=== PATIENT | female | born 1995 | race Caucasian/White ===

== ENCOUNTER 2021-02-10 09:37 | Emergency (ER) | payer OTHER ==
[2021-02-10 10:17] LABS: Bilirubin Neg (Negative); Blood, Urine Negative (Negative); Clarity Clear (Clear); Glucose, Urine (Dipstick) Normal (Negative); Ketone, Urine 15 mg/dL (Negative); Leukocyte 100 (Negative); Nitrite Negative (Negative); Protein, Urine (Dipstick) 15 mg/dl (Neg-Trace); Specific Gravity, Urine 1.025 (1.002-1.036); Urobilinogen Normal mg/dL (Less than 2)
[2021-02-10 10:20] LABS: Pregnancy Test - Urine (BHCG) Negative (Negative); Pregu Control Background? CLEAR/WHITE (CLR/WHITE); Pregu Control Bar Appear? YES (CONTROL BAR); Specific Gravity 1.025 (1.002-1.036)
[2021-02-10 10:26] LABS: #Eosinphils 0.1 10x3/uL (0.0-0.5); #Monocytes 0.5 10x3/uL (0.0-1.1); #Neutrophils 9.3 10x3/uL (1.5-8.4); %Basophils 0.3 % (0.0-2.0); %Eosinophils 1.1 % (0.0-6.0); %Lymphocytes 4.7 % (18.0-47.0); %Neutrophils 88.7 % (40.0-75.0); Hemoglobin 13.6 g/dL (12.0-15.5); Mean Corpuscular HGB CONC 32.5 g/dL (32.0-36.0); Mean Corpuscular Hemoglobin 29.4 pg (27.0-33.0); Mean Corpuscular Volume 90.3 fl (81.6-98.3); Mean Platelet Volume 10.3 fl (7.4-10.4); Platelet Count 197 10x3/uL (150-450); RBC Distribution Width 11.8 % (11.5-14.5); Red Blood Cell (RBC) Count 4.63 10x6/uL (3.90-5.03); White Blood Cell (WBC) Count 10.5 10x3/uL (3.5-10.5)
[2021-02-10 10:35] LABS: ALT (SGPT) 16 U/L (8-55); AST (SGOT) 15 U/L (5-34); Albumin 4.4 g/dL (3.5-5.0); Alkaline Phosphatase 38 U/L (40-110); Anion Gap 13 mmol/L (10-20); BUN (Urea Nitrogen) 14 mg/dL (7.0-18.7); Bilirubin, Total 0.5 mg/dL (0.2-1.2); Calc. Creatinine Clearance 0 mL/min (70-130); Calcium 9.3 mg/dL (7.8-10.44); Carbon Dioxide 24 mmol/L (22-29); Chloride 105 mmol/L (98-107); Globulin 3.1 g/dL (2.4-3.5); Glucose 103 mg/dL (70-105); Lipase 19 U/L (8-78); Potassium 3.7 mmol/L (3.5-5.1); Protein, Total 7.5 g/dL (6.0-8.3); Sodium 138 mmol/L (136-145)
[2021-02-10 10:39] LABS: Bacteria/HPF 3+ HPF (None Seen); RBC/HPF 0-3 HPF (0-3)
[2021-02-10] MEDS ORDERED: Ketorolac Tromethamine 30 MG/ML VIAL ONE (13:19)
== END 2021-02-10 13:48 | disposition home or self-care (01) ==
LOC: CSHERS 09:37
DX: R11.2 Nausea with vomiting, unspecified (principal); R19.7 Diarrhea, unspecified
CPT/HCPCS: 80053; 81003; 81015; 81025; 83690; 85025; 96374; J1885

== ENCOUNTER → 2021-11-13 | Day surgery (SDC) | payer OTHER ==
[2021-11-13 12:35] LABS: SARS-CoV-2 NAA Rapid Test DETECTED (NotDetected)
== END ==
LOC: CSHER/OP 11:38
PROVIDERS: ATTEND Pathology Anatomic Pathology & Clinical Pathology
DX: U07.1 COVID-19 (principal)
CPT/HCPCS: U0002

== ENCOUNTER 2022-01-02 08:01 | Inpatient (IN) | payer BC, OTHER ==
[2022-01-02] MEDS ORDERED: Morphine 4 MG/ML VIAL ONE (08:45)
[2022-01-02] MEDS ORDERED: cefTRIAXone\\ROCEPHIN 2 GM VIAL ONE (08:45)
[2022-01-02] MEDS ORDERED: Ketorolac Tromethamine 30 MG/ML VIAL ONE (08:45)
[2022-01-02] MEDS ORDERED: Ondansetron PF 4 MG/2 ML Vial ONE (08:45)
[2022-01-02 08:56] LABS: #Monocytes 0.6 10x3/uL (0.0-1.1); #Neutrophils 6.9 10x3/uL (1.5-8.4); %Basophils 0.5 % (0.0-2.0); %Eosinophils 0.1 % (0.0-6.0); %Lymphocytes 10.5 % (18.0-47.0); %Monocytes 7.5 % (0.0-10.0); Hemoglobin 12.6 g/dL (12.0-15.5); Mean Corpuscular HGB CONC 32.8 g/dL (32.0-36.0); Mean Corpuscular Hemoglobin 28.9 pg (27.0-33.0); Mean Corpuscular Volume 88.1 fl (81.6-98.3); Mean Platelet Volume 10.7 fl (7.4-10.4); Platelet Count 185 10x3/uL (150-450); Red Blood Cell (RBC) Count 4.36 10x6/uL (3.90-5.03); White Blood Cell (WBC) Count 8.6 10x3/uL (3.5-10.5)
[2022-01-02 09:01] LABS: INR-International Normal Ratio 0.9; PTT 28.8 sec (22.0-33.0); Prothrombin Time 10.4 sec (9.5-12.1)
[2022-01-02 09:05] LABS: ALT (SGPT) 18 U/L (8-55); AST (SGOT) 17 U/L (5-34); Albumin 4.1 g/dL (3.5-5.0); Alkaline Phosphatase 49 U/L (40-110); Anion Gap 14 mmol/L (10-20); BUN (Urea Nitrogen) 7 mg/dL (7.0-18.7); Bilirubin, Total 0.5 mg/dL (0.2-1.2); CRP (Inflammatory) 12.79 mg/dL (= or < 0.5); Calc. Creatinine Clearance 0 mL/min (70-130); Carbon Dioxide 23 mmol/L (22-29); Chloride 99 mmol/L (98-107); Globulin 3.3 g/dL (2.4-3.5); Glucose 106 mg/dL (70-105); Potassium 3.6 mmol/L (3.5-5.1); Protein, Total 7.4 g/dL (6.0-8.3); Sodium 132 mmol/L (136-145)
[2022-01-02 09:15] LABS: Lipase 22 U/L (8-78); Magnesium 1.6 mg/dL (1.6-2.6)
[2022-01-02 09:22] LABS: Thyroid Stimulating Hormone 0.6654 uIU/mL (0.35-4.94)
[2022-01-02 09:37] LABS: BHCG - Serum Negative (NEGATIVE); Pregs Control Background? CLEAR/WHITE (CLR/WHITE); Pregs Control Bar Appear? YES (CONTROL BAR)
[2022-01-02] MEDS ORDERED: methylPREDNISolone Sod Succ/PF 125 MG/2 ML VIAL ONE (09:59)
[2022-01-02] MEDS ORDERED: EPINEPHrine 1 MG/ML AMP ONE (10:00)
[2022-01-02 10:05] LABS: SARS-CoV-2 NAA Rapid Test Not Detected (NotDetected)
[2022-01-02] MEDS ORDERED: Famotidine/PF 20 mg/2ml Vial ONE ×2 (10:11→13:06)
[2022-01-02 11:04] LABS: Bilirubin Neg (Negative); Blood, Urine 10 (Negative); Clarity Clear (Clear); Glucose, Urine (Dipstick) Normal (Negative); Ketone, Urine 50 mg/dL (Negative); Leukocyte Negative (Negative); Nitrite Negative (Negative); Protein, Urine (Dipstick) Negative (Neg-Trace); Urobilinogen Normal mg/dL (Less than 2); pH, Urine 6.5 (5.0-9.0)
[2022-01-02 11:11] LABS: Bacteria/HPF Rare-Few HPF (None Seen); RBC/HPF 0-3 HPF (0-3); Squamous Epithelial 0-3 HPF (0-3); WBC/HPF 0-3 HPF (0-3)
[2022-01-02] MEDS ORDERED: Midazolam HCl 2 mg/2 ml Vial ONE (11:52)
[2022-01-02] MEDS ORDERED: Acyclovir Sodium 900 MG in Sodium Chloride 0.9% 250 ML 250 ML IVPB SCH (13:00)
[2022-01-02] MEDS ORDERED: diphenhydrAMINE 50 MG/ML VIAL ONE (13:05)
[2022-01-02] MEDS ORDERED: methylPREDNISolone Sod Succ 40 MG VIAL ONE (13:06)
[2022-01-02] MEDS ORDERED: Ondansetron ODT 4 MG TAB PO PRN (16:39)
[2022-01-02] MEDS ORDERED: Ondansetron PF 4 MG/2 ML Vial IVP PRN (16:39)
[2022-01-02] MEDS ORDERED: Acetaminophen 650 MG Suppository PR PRN (16:39)
[2022-01-02] MEDS ORDERED: Acetaminophen 325 MG TAB PO PRN (16:39)
[2022-01-02] MEDS ORDERED: Vancomycin 1 GM in Premix Bag 1 BAG IVPB SCH (16:45)
[2022-01-02 17:01] VITALS: BMI 24.1
[2022-01-02] MEDS ORDERED: Meropenem 1 GM in Sodium Chloride 0.9% 100 ML IVPB SCH (17:15)
[2022-01-02] MEDS: Vancomycin HCl 1 GM in Sodium Chloride 0.9% 250 ML 250 ML IVPB SCH (17:27)
[2022-01-02] MEDS ORDERED: VANCOMYCIN 1.25 GM, Admixture Fee 1 EACH in Sodium Chloride 0.9% 250 ML 250 ML IVPB SCH (18:00)
[2022-01-02] MEDS ORDERED: EPINEPHrine 1 MG/10 ML Abboject SYRINGE IVP PRN (18:12)
[2022-01-02 19:33] LABS: CSF, Glucose 83 mg/dl (40-70); CSF, Protein 26 mg/dL (15-40)
[2022-01-02 19:44] LABS: CSF RBC Count - Manual 1 /cu.mm (None Seen); CSF Source CSF; CSF WBC/NonHematics Count-Man 1 /cu.mm (0-5); Clarity Clear (Clear); Tube # 3
[2022-01-02] MEDS ORDERED: Meropenem 2 GM in Admixture Fee 1 EACH IVPB SCH (22:00)
[2022-01-03] MEDS: Meropenem 1 GM in Sodium Chloride 0.9% 100 ML IVPB SCH ×2 (01:21→09:01)
[2022-01-03] MEDS: Vancomycin HCl 1 GM in Sodium Chloride 0.9% 250 ML 250 ML IVPB SCH ×2 (01:21→09:01)
[2022-01-03 04:24] LABS: #Monocytes 0.6 10x3/uL (0.0-1.1); #Neutrophils 6.3 10x3/uL (1.5-8.4); %Basophils 0.1 % (0.0-2.0); %Lymphocytes 7.6 % (18.0-47.0); %Monocytes 8.3 % (0.0-10.0); %Neutrophils 83.5 % (40.0-75.0); Hemoglobin 10.8 g/dL (12.0-15.5); Mean Corpuscular Hemoglobin 28.5 pg (27.0-33.0); Mean Corpuscular Volume 88.9 fl (81.6-98.3); Mean Platelet Volume 10.3 fl (7.4-10.4); Platelet Count 160 10x3/uL (150-450); RBC Distribution Width 12.1 % (11.5-14.5); Red Blood Cell (RBC) Count 3.79 10x6/uL (3.90-5.03); White Blood Cell (WBC) Count 7.5 10x3/uL (3.5-10.5)
[2022-01-03 04:38] LABS: Anion Gap 13 mmol/L (10-20); BUN (Urea Nitrogen) 7 mg/dL (7.0-18.7); Calc. Creatinine Clearance 131 mL/min (70-130); Calcium 8.6 mg/dL (7.8-10.44); Carbon Dioxide 23 mmol/L (22-29); Chloride 108 mmol/L (98-107); Glucose 142 mg/dL (70-105); Potassium 3.7 mmol/L (3.5-5.1); Sodium 140 mmol/L (136-145)
[2022-01-03] MEDS ORDERED: Naproxen 500 MG TAB PO SCH (13:00)
[2022-01-03 13:19] VITALS: BP 105/78; TEMP 98.5
[2022-01-03] MEDS ORDERED: Acetaminophen 500 MG TAB PO SCH ×2 (15:00)
== END 2022-01-03 14:08 | disposition home or self-care (01) | DRG 871 ==
LOC: CSHERS 08:01 → CSHTELE 15:27
PROVIDERS: ADMIT Hospitalist; ATTEND Hospitalist
PROC: 009U3ZX Drainage of Spinal Canal, Percutaneous Approach, Diagnostic (ICD-10-PCS; principal; 2022-01-02)
PROC: B01B1ZZ Fluoroscopy of Spinal Cord using Low Osmolar Contrast (ICD-10-PCS; 2022-01-02)
DX: A41.9 Sepsis, unspecified organism (principal); G93.5 Compression of brain; T78.2XXA Anaphylactic shock, unspecified, initial encounter; Z20.822 Contact with and (suspected) exposure to COVID-19; A08.4 Viral intestinal infection, unspecified; Z88.1 Allergy status to other antibiotic agents; Z88.8 Allergy status to other drugs, medicaments and biological substances; Z90.49 Acquired absence of other specified parts of digestive tract
CPT/HCPCS: 0240U; 36415; 62270; 70450; 70496; 70498; 70553; 71045; 80048; 80053; 81003; 81015; 82945; 83605; 83690; 83735; 84157; 84443; 84484; 84703; 85025; 85610; 85652; 85730; 86140; 86788; 86789; 86850; 86900; 86901; 87040; 87070; 87086; 87529; 87633; 89051; 93005; 96365; 96367; 96372; 96375; 96376; J0133; J0171; J0696; J1200; J1885; J2185; J2250; J2270; J2405; J2920; J2930; J3370; J3490; J7050; S0028